=== PATIENT | female | born 1985 | race Caucasian/White ===

== ENCOUNTER → 2023-11-05 15:22 | Outpatient (REF) | payer OTHER, SELFPAY | LOC: RAD 15:22 | PROVIDERS: ATTENDING PHYSICIAN Internal Medicine Rheumatology; FAMILY PHYSICIAN Internal Medicine | DX: M06.4 Inflammatory polyarthropathy (principal); M25.50 Pain in unspecified joint | CPT/HCPCS: 73130 ==

== ENCOUNTER → 2025-02-06 09:38 | Outpatient (REF) | payer BC, SELFPAY | LOC: PAVMRI 09:38 | PROVIDERS: ATTENDING PHYSICIAN Physician Assistant Surgical; REFERRING PHYSICIAN Psychiatry & Neurology Neurology | DX: M54.2 Cervicalgia (principal); G24.3 Spasmodic torticollis | CPT/HCPCS: 72141 ==